=== PATIENT | female | born 1975 | race Caucasian/White ===

== ENCOUNTER 2017-05-09 05:08 | Emergency (ER) | payer BC ==
[~2017-05-09] VITALS: Ht 160 cm; Wt 74.8 kg
[~2017-05-09 05:08] MED LIST: PROZAC20 MG/5 ML PO; TRI-SPRINTEC1 EACH PO
[2017-05-09 05:09] VITALS: BP 171/100
[2017-05-09 05:47] LABS: URINE BILIRUBIN NEGATIVE (Negative); URINE BLOOD 3+ (Negative); URINE CLARITY CLEAR; URINE COLOR YELLOW; URINE GLUCOSE-RANDOM* NEGATIVE (Negative); URINE KETONES NEGATIVE (Negative); URINE LEUKOCYTES-REFLEX NEGATIVE (Negative); URINE NITRITE-REFLEX NEGATIVE (Negative); URINE PROTEIN (DIPSTICK) NEGATIVE (Negative); URINE SPECIFIC GRAVITY >= 1.030 (1.005-1.035); URINE UROBILINOGEN 0.2 E.U./dl (0.2-1.0)
[2017-05-09 05:47] LABS: HEMATOCRIT 36.6 % (37.0-47.0); HEMOGLOBIN 12.2 gm/dL (12.0-15.0); LYMPHOCYTES 35.9 % (24.0-44.0); MCH 30.3 pg (26.0-34.0); MCHC 33.4 g/dL (28.0-37.0); MCV 90.5 fL (80.0-100.0); MONOCYTES 6.4 % (1.0-8.0); PLATELET COUNT 355 thou/uL (150-400); POLYS 53.7 % (36.0-66.0); RBC 4.04 mil/uL (4.20-5.00); RDW 13.3 % (10.5-14.5); WBC 14.9 thou/uL (4.0-11.0)
[2017-05-09 05:49] LABS: ANION GAP 12 mmol/L (7-16); BUN 14 mg/dL (7-18); CALCIUM 9.3 mg/dL (8.5-10.1); CHLORIDE 105 mmol/L (98-107); CO2 23 mmol/L (21-32); CREATININE 0.9 mg/dL (0.6-1.0); GLUCOSE 118 mg/dL (74-106); POTASSIUM 3.4 mmol/L (3.5-5.1); SODIUM 140 mmol/L (136-145)
[2017-05-09 05:55] LABS: ALBUMIN 3.7 g/dL (3.4-5.0); DIRECT BILIRUBIN < 0.1 mg/dL (<0.1-0.3); LIPASE 1275 U/L (73-393); SGOT 19 U/L (15-37); SGPT 17 U/L (30-65); TOTAL BILIRUBIN 0.4 mg/dL (<0.1-1.0); TOTAL PROTEIN 7.6 g/dL (6.4-8.2)
[2017-05-09 05:56] LABS: HYALINE CASTS 0-3 Few /LPF (None Seen); SQUAMOUS >10 Many /LPF (0-3)
[2017-05-09 05:57] LABS: MUCUS 4-6 Moderate strn/LPF (None Seen)
[2017-05-09 05:58] LABS: CRYSTALS None Seen /LPF (None Seen); URINE RBC >20 Many /HPF (0-2); URINE WBC-REFLEX 0-5 Rare /HPF (0-5)
[2017-05-09 08:17] VITALS: BP 104/62
== END 2017-05-09 08:18 | disposition left against medical advice (07) ==
LOC: ER 05:08 → EROBS 06:23 → ER 08:18
PROVIDERS: Emergency Medicine
DX: K85.90 Acute pancreatitis without necrosis or infection, unspecified (principal); R51 Headache

== ENCOUNTER 2020-07-30 20:18 | Emergency (ER) | payer BC ==
[~2020-07-30] VITALS: Ht 160 cm; Wt 78.0 kg
[2020-07-30 20:19] VITALS: BP 158/77
== END 2020-07-30 21:08 | disposition home or self-care (01) ==
LOC: ER 20:18
DX: S01.81XA Laceration without foreign body of other part of head, initial encounter (principal); Z79.899 Other long term (current) drug therapy; W18.39XA Other fall on same level, initial encounter; Y93.89 Activity, other specified; Y92.89 Other specified places as the place of occurrence of the external cause; Y99.8 Other external cause status